=== PATIENT | male | born 1965 | race Caucasian/White ===

== ENCOUNTER → 2017-04-12 | Day surgery (SDC) | payer OTHER ==
[~2017-04-12] VITALS: Ht 167.6 cm; Wt 127.0 kg
[~2017-04-12] MED LIST: DILAUDID2 M1 PO; PERCOCET 10-321 EACH PO
--- NOTE | 2017-04-19 11:14 | Operative Report ---
Operative/Inv Procedure Report Surgery Date: 04/12/17 Name of Procedure: And #1 right rotator cuff repair #2 subacromial decompression #3 lateral clavicle excision Pre-Operative Diagnosis: #1 right rotator cuff tear #2 impingement syndrome right shoulder #3 acromioclavicular arthropathy right shoulder Post-Operative Diagnosis: Same Estimated Blood Loss: scant Surgeon/Drop Clipper: Gema DUGGAN,Eh Baumann Anesthesia: laryngeal mask airway, block Drains: None Specimens: None Complications: None Condition: Stable Operative Indication: Patient is a 51-year-old man who has had significant right shoulder pain without major trauma. Symptoms continued to progress despite conservative measures for treatment. Evaluation included MRI which showed probable rotator cuff tear and acromioclavicular arthropathy. Examination was consistent with at least a partial rotator cuff tear most likely high-grade as well as impingement. Due to lack of improvement with conservative measures, he wished to proceed with arthroscopic management of the problem. We discussed risks, benefits and expectations of the procedure which included but were not limited to persistent shoulder pain, need for substance surgery, infection, recurrent tear and anesthesia risks. Operative/Procedure Note Note: Patient was brought to the operating room and transferred to the operating table. Once under appropriate anesthesia the patient was placed into a beachchair position. All bony prominences well-padded. Right upper extremity was prepped and draped in standard fashion. Preoperative IV antibiotics were given prophylactically. A standard posterior incision was made after the glenohumeral joint was injected with 30 mL of sterile normal saline. Scope was inserted. Mild glenoid degenerative changes and degenerative fraying of the superior labrum. Anterior portal site was established under direct vision in standard fashion. We able to visualize the undersurface of the rotator cuff. Clearly there was a full-thickness rotator cuff tear with significant degenerative fraying of the supraspinatus. This was debrided from the undersurface and then were able to visualize it from the acromial surface by changing position of the scope in the subacromial space. An anterior lateral portal sites were also established to work in the subacromial space. Patient had significance subacromial bursal information and chronic thickening of the bursa. I used the cautery followed by the shaver to complete the bursectomy in order to visualize the rotator cuff. The tear site was visualized. Also, it was clear the patient had a chronic biceps tendon disruption and the long head of the biceps was not in the joint at all.. After debriding the edges of the degenerative rotator cuff tissue we placed sutures and then anchored the repair. A shaver was used to produce a more biologic Onie bed for the repair site. The anchors were impacted in place and the rotator cuff edges were confirmed opposed to the biologic bed. Shoulder was taken through range of motion I was satisfied with the stability of the construct. The tissue was deathly found to be atrophic on the edges even with debridement of the edges but the repair appeared to be solid. Copious irrigation followed. I then did a subacromial decompression and finished off the bursectomy more medially and was able to visualize the degenerative acromioclavicular joint. I used the shaver to complete the lateral clavicle excision due to patient's significant arthropathy of this joint. Proximal 9 mm of the lateral clavicle were excised there was no further impingement noted. The undersurface of the acromion was confirmed with a flush undersurface after using the shaver starting in the lateral portal followed by the posterior portal to finish off the acromioplasty. I was satisfied with the decompression and then I visualized the rotator cuff repair after completed the decompression I was satisfied with the stability of this after irrigation was completed all instruments and fluids were removed from the subacromial space. Portal sites were closed with interrupted nylon suture. Appropriate just his were applied and patient was awakened and taken to recovery room in good condition. No intraoperative complications. Blood loss was minimal Discharge Disposition: PACU
== END ==
LOC: STS 03:18
DX: M75.121 Complete rotator cuff tear or rupture of right shoulder, not specified as traumatic (principal); M75.41 Impingement syndrome of right shoulder; M13.811 Other specified arthritis, right shoulder; I10 Essential (primary) hypertension; K21.9 Gastro-esophageal reflux disease without esophagitis; E66.9 Obesity, unspecified; Z68.41 Body mass index [BMI] 40.0-44.9, adult; F17.210 Nicotine dependence, cigarettes, uncomplicated
CPT/HCPCS: J0171; J0690; J2250